=== PATIENT | male | born 1955 | race Caucasian/White ===

== ENCOUNTER 2020-05-31 14:53 | Emergency (ER) | payer OTHER, SELFPAY ==
[2020-05-31] VITALS (7 sets, daily range): BP systolic 140–168; BP diastolic 84–95; PULSE 72–91; RESP 15–25; TEMP 36.8; O2SAT 95–99; BMI 29.7
--- NOTE | 2020-05-31 15:01 | DI.RAD.S_ITS ---
PROCEDURE: XR CHEST 2V INDICATIONS: shortness of breath TECHNIQUE: 2 views of the chest were acquired. COMPARISON: None. FINDINGS: Surgical changes and devices: None. Lungs and pleura: Lungs are clear. No pleural effusions or pneumothorax. Mediastinum: Mediastinal contours are normal. Heart size is normal. Bones and chest wall: No suspicious bony abnormalities. Soft tissues appear unremarkable. IMPRESSION: Normal for age, source of current shortness of breath symptoms is not seen. Dictated by: Nick Bobo M.D. on 05/31/2020 at 16:02 Approved by: Nick Bobo M.D. on 05/31/2020 at 16:03
[2020-05-31 15:40] LABS: Add Manual Diff / Slide Review NO; Basophils Absolute Auto 100 /uL (0-100); Basophils Percent Auto 0.9 % (0-2); Eosinophils Absolute Auto 100 /uL (0-450); Eosinophils Percent Auto 2.2 % (2-4); Hematocrit 47.3 % (41-53); Hemoglobin 16.6 g/dL (13.5-17.5); Lymphocytes Absolute Auto 1700 /uL (1100-4500); Lymphocytes Percent Auto 26.7 % (25-40); Mean Corpuscular Hemoglobin 31.7 PG (26-34); Mean Corpuscular Volume 90.6 fL (80-100); Monocytes Absolute Auto 700 /uL (0-900); Neutrophils Absolute Auto 3700 /uL (1500-7000); Neutrophils Percent Auto 59.2 % (50-75); Platelet Count 286 X10^3/uL (150-400); Red Blood Cell Count 5.22 X10^6/uL (4.5-5.9); Red Cell Distribution Width 12.9 % (11.6-14.8); White Blood Cell Count 6.2 X10^3/uL (4.5-11.0)
--- NOTE | 2020-05-31 15:43 | ED_ITS ---
HPI - SOB/Dyspnea General Chief Complaint: Shortness of Breath/Dyspnea Stated Complaint: Short of breath, chest pain Time Seen by Provider: 05/31/20 15:33 Source: patient Mode of arrival: Ambulatory Limitations: no limitations History of Present Illness HPI Narrative: This is a 64-year-old male who comes to the emergency department with complaint of shortness of breath. Patient states he history of pulmonary emboli several years ago. He states it was after he had a cast that was placed in appropriately on his leg. Patient was on warfarin for period of time. He no longer takes this medication. Patient states that he has noticed some mild discomfort in his right calf and into his thigh. He states he has been sitting a lot recently with the pandemic. He has also had some shortness of breath that was worse several nights ago particularly with lying flat. He has also developed a nagging cough. Patient states he had similar symptoms when he has pulmonary emboli. He has also had a mild headache he denies any fevers, chills. He states his cough has had some brownish productive sputum. He does not have any increased dyspnea with exertion. He denies any significant chest pain he states that he will sometimes have random spots that her. No nausea, denies vomiting, no issues with bowel movements. No urinary issues. No swelling in patient's lower extremities. He states he has chronic puffiness and color discoloration from his prior DVT in his right lower extremity. Patient denies any prior surgeries, no allergies to medications. No tobacco, no alcohol. Does use THC but denies other recreational drugs. Follows with Dr. De Guzman and lives on [facility]. Related Data Home Medications Medication Instructions Recorded Confirmed enoxaparin [Lovenox] 100 mg SQ Q12H #0 11/26/10 warfarin [Coumadin] 5 mg PO QDAY #0 11/26/10 Allergies Allergy/AdvReac Type Severity Reaction Status Date / Time No Known Drug Allergies Allergy Verified 05/31/20 15:03 Review of Systems Review of Systems ROS Unobtainable: All systems reviewed & are unremarkable except as noted in HPI and below Patient History Medical History (Updated 05/31/20 @ 17:18 by Roxanne Maza DO) Pulmonary embolism Social History Smoking Status: Unknown if ever smoked Smoking Status: Unknown if ever smoked alcohol intake frequency: holidays/special occasions only Substance Use Type: marijuana Exam Narrative Exam Narrative: GENERAL: Alert and oriented x three, obese male in mild distress. HEENT: Head normocephalic, atraumatic, EOMI, pupils reactive, face symmetric, moist mucous membranes NECK: Supple, full range of motion CARDIOVASCULAR: Regular rate and rhythm without murmurs, rubs or gallops. No JVD. RESPIRATORY: Breath sounds equal bilaterally, no wheezes rales or rhonchi. No tachypnea. Speaks in full sentences. ABDOMEN: Soft, nontender. Normoactive bowel sounds all 4 quadrants. No guarding or rebound, rigidity, no mass : No CVA tenderness EXTREMITIES: Normal range of motion, no clubbing. No significant swelling left versus right lower extremity. Neurovascularly intact NEUROLOGICAL: Cranial nerves II through XII grossly intact. Moving all extremities SKIN: Warm, dry, no petechiae, no rashes or lesions. Initial Vital Signs Initial Vital Signs: Vital Signs Temperature 98.2 F 05/31/20 15:00 Pulse Rate 91 H 05/31/20 15:00 Respiratory Rate 15 05/31/20 15:00 Blood Pressure 168/95 H 05/31/20 15:00 Pulse Oximetry 97 05/31/20 15:00 Scores HEART Score Heart Score history: Slightly Suspicious Heart Score EKG: Non-Specific repolarization disturbance Heart Score Age: 45-64 years old Heart Score risk factors: No known risk factors PERC Score Age greater than or equal to 50 years: Yes Heart rate greater than or equal to 100 bpm: No Room Air O2 Sat less than 95%: No Unilateral leg swelling: No Recent trauma or surgery: No Hemoptysis: No Prior PE or DVT: Yes Hormone Use: No Total PERC Score: 2 Course Orders Ordered: ED Orders 05/31/20 15:00 Complete Blood Count AUTO DIFF Stat Comprehensive Metabolic Panel Stat D Dimer Stat Lactate (Lactic Acid) Stat NT-proBNP (BNP-Adult 18+) Stat Troponin & CK Cardiac Panel Stat 05/31/20 15:01 XR chest 2V Stat EKG-12 Lead Stat Measure peak expiratory flow ONCE RT Consult Eval and Treat Now 05/31/20 15:30 COVID19 Stat 05/31/20 15:41 US periph venous low extrem rt Stat Vital Signs Vital signs: Vital Signs - 8 hr 05/31/20 15:00 05/31/20 15:01 05/31/20 15:26 Temperature 98.2 F Pulse Rate 91 H 84 81 Respiratory Rate 15 20 Blood Pressure 168/95 H 166/86 H Pulse Oximetry 97 99 96 05/31/20 15:30 05/31/20 16:00 05/31/20 16:30 Temperature Pulse Rate 82 78 79 Respiratory Rate 25 H 21 18 Blood Pressure 157/84 H 154/92 H 149/85 H Pulse Oximetry 95 97 95 05/31/20 17:00 Temperature Pulse Rate 72 Respiratory Rate 19 Blood Pressure 140/87 Pulse Oximetry 95 MDM - SOB/Dyspnea Lab Data Attestation: I reviewed the patient's lab results. Result diagrams: 05/31/20 15:00 05/31/20 15:00 Labs: Lab Results 05/31/20 05/31/20 05/31/20 Range/Units 15:00 15:00 15:00 WBC 6.2 (4.5-11.0) X10^3/uL RBC 5.22 (4.5-5.9) X10^6/uL Hgb 16.6 (13.5-17.5) g/dL Hct 47.3 (41-53) % MCV 90.6 (80-100) fL MCH 31.7 (26-34) PG MCHC 35.0 (30-36) % RDW 12.9 (11.6-14.8) % Plt Count 286 (150-400) X10^3/uL Neut % (Auto) 59.2 (50-75) % Lymph % (Auto) 26.7 (25-40) % [place] % (Auto) 11.0 (3-14) % Eos % (Auto) 2.2 (2-4) % Baso % (Auto) 0.9 (0-2) % Neut # (Auto) 3700 (6538-7036) /uL Lymph # (Auto) 1700 (7536-1088) /uL [place] # (Auto) 700 (0-900) /uL Eos # (Auto) 100 (0-450) /uL Baso # (Auto) 100 (0-100) /uL D-Dimer (<230) ng/mL Sodium 139 (137-145) mmol/L Potassium 3.8 (3.4-5.1) mmol/L Chloride 103 (98-107) mmol/L Carbon Dioxide 29 (22-32) mmol/L BUN 14 (9-20) mg/dL Creatinine 0.68 (0.66-1.25) mg/dL Estimated GFR > 60.0 (>60) mL/min BUN/Creatinine Ratio 20.6 (6-22) Glucose 122 H (80-110) mg/dL Lactate 1.6 (0.7-2.1) mmol/L Calcium 9.2 (8.4-10.2) mg/dL Total Bilirubin 0.7 (0.2-1.3) mg/dL AST 36 (17-59) IU/L ALT 35 (<50) IU/L Alkaline Phosphatase 119 (38-126) U/L Total Creatine Kinase (55-170) U/L CK-MB (CK-2) CK-MB (CK-2) Rel Index Troponin I (0.01-0.034) ng/mL NT-Pro-B Natriuret Pep (<125) pg/mL Total Protein 8.0 (6.3-8.2) g/dL Albumin 4.7 (3.5-5.0) g/dL Globulin 3.3 (1.7-4.1) g/dL Albumin/Globulin Ratio 1.4 (1.0-2.8) SARS-CoV-2 (PCR) (Negative) 05/31/20 05/31/20 05/31/20 Range/Units 15:00 15:00 15:30 WBC (4.5-11.0) X10^3/uL RBC (4.5-5.9) X10^6/uL Hgb (13.5-17.5) g/dL Hct (41-53) % MCV (80-100) fL MCH (26-34) PG MCHC (30-36) % RDW (11.6-14.8) % Plt Count (150-400) X10^3/uL Neut % (Auto) (50-75) % Lymph % (Auto) (25-40) % [place] % (Auto) (3-14) % Eos % (Auto) (2-4) % Baso % (Auto) (0-2) % Neut # (Auto) (9647-6508) /uL Lymph # (Auto) (4390-9023) /uL [place] # (Auto) (0-900) /uL Eos # (Auto) (0-450) /uL Baso # (Auto) (0-100) /uL D-Dimer < 200 (<230) ng/mL Sodium (137-145) mmol/L Potassium (3.4-5.1) mmol/L Chloride (98-107) mmol/L Carbon Dioxide (22-32) mmol/L BUN (9-20) mg/dL Creatinine (0.66-1.25) mg/dL Estimated GFR (>60) mL/min BUN/Creatinine Ratio (6-22) Glucose (80-110) mg/dL Lactate (0.7-2.1) mmol/L Calcium (8.4-10.2) mg/dL Total Bilirubin (0.2-1.3) mg/dL AST (17-59) IU/L ALT (<50) IU/L Alkaline Phosphatase (38-126) U/L Total Creatine Kinase 63 (55-170) U/L CK-MB (CK-2) TNP CK-MB (CK-2) Rel Index TNP Troponin I < 0.012 (0.01-0.034) ng/mL NT-Pro-B Natriuret Pep 54 (<125) pg/mL Total Protein (6.3-8.2) g/dL Albumin (3.5-5.0) g/dL Globulin (1.7-4.1) g/dL Albumin/Globulin Ratio (1.0-2.8) SARS-CoV-2 (PCR) Negative (Negative) Imaging Data Chest x-ray: Radiologist's Impression: [address] [id number] ReportSigned Patient: Jerry Rodríguez#: [id number]: 7Acct:[id number]/Sex: 64 / MDate of Service: 05/31/20Loc: EDAccession Number: [id number] Procedure: XR chest 2V Ordering Provider: Roxanne Maza D.O. PROCEDURE: XR CHEST 2V INDICATIONS: shortness of breath TECHNIQUE: 2 views of the chest were acquired. COMPARISON: None. FINDINGS: Surgical changes and devices: None. Lungs and pleura: Lungs are clear. No pleural effusions or pneumothorax. Mediastinum: Mediastinal contours are normal. Heart size is normal. Bones and chest wall: No suspicious bony abnormalities. Soft tissues appear unremarkable. IMPRESSION: Normal for age, source of current shortness of breath symptoms is not seen. Dictated by: Nick Bobo M.D. on 05/31/2020 at 16:02 Approved by: Nick Bobo M.D. on 05/31/2020 at 16:03 US - DVT: Radiologist's Impression: [address] [id number] ReportSigned Patient: Serjio RodríguezMR#: [id number]: 7Acct:[id number]/Sex: 64 / MDate of Service: 05/31/20Loc: EDAccession Number: [id number] Procedure: US periph venous low extrem rt Ordering Provider: Roxanne Maza D.O. PROCEDURE: US PERIPH VENOUS LOW EXTREM RT INDICATIONS: CALF/THIGH PAIN. HISTORY OF DEEP VEIN THROMBOSIS. TECHNIQUE: Real-time imaging, as well as color and pulse Doppler interrogation, were performed of the lower extremity deep veins from the inguinal ligament to the popliteal fossa. COMPARISON: None. FINDINGS: The common femoral, femoral and popliteal veins are normally compressible, and free of intraluminal thrombus. Color and pulse Doppler demonstrate normal phasic intraluminal flow. There is normal augmentation response to distal compression maneuver. IMPRESSION: No right lower extremity DVT. Dictated by: Se Graves M.D. on 05/31/2020 at 16:34 Approved by: Se Graves M.D. on 05/31/2020 at 16:36 ECG Data Attestation: I personally reviewed and interpreted this ECG as follows: Prior ECG tracings: available for review Interpretation: Sinus rhythm rate of 78, [place] 183, QRS of 105 and QTC 394. Left anterior fascicular block. No ST elevation depression appreciated. Patient has prior from 11/26/2010 appears similar to prior that EKG did have left axis deviation. MDM Narrative Medical decision making narrative: This is a 64-year-old male who comes to the emergency department with concern for pulmonary emboli. Patient states he has had some mild shortness of breath, a knocking cough that is similar to when he had his prior pulmonary emboli. He has not had fevers. He has had some nasal congestion. He also states he has had a little bit of discomfort in his right lower extremity patient's prior pulmonary emboli was after he had a splint on his right ankle for ankle fracture the splint was placed in correctly causing extreme pressure on a portion the lower extremity and they felt that this likely caused his blood clot. Patient states he has been a little bit more sedentary than normal secondary to the pandemic but has no other new risk factors. He was on anticoagulation but is no longer. Patient immediate ultrasound of lower extremity is negative D-dimer is negative, negative troponin, BNP with no other acute changes patient has had some upper respiratory symptoms. Not get a COVID. We did discuss my suspicion for PE at this time is, was offered CTA more for patient reassurance which he defers. Discharge Plan Departure Patient Disposition: Home Clinical Impression: Cough Activity Restrictions/Additional Instructions: Follow-up with your physician this week for recheck. Your labs and imaging today do not suggest that you have a pulmonary emboli but we did not do a CT of your chest. If you have worsening symptoms or more concerns please return. Return for fevers, chest pain, new shortness of breath or worsening shortness of breath, lightheadedness or passing out, diaphoresis or sweatiness, persistent vomiting, new swelling of extremities, increasing or new pain in her extremities or other new or concerning symptoms. Prescriptions: No Action warfarin [Coumadin] 5 MG tablet 5 mg PO QDAY Qty: 0 RF: 0 enoxaparin [Lovenox] 100 MG/1 ML syringe 100 mg SQ Q12H Qty: 0 RF: 0 Referrals: Blake Johnson MD [Primary Care Provider] -
[2020-05-31 15:53] LABS: COVID19 -Nasal RAPID Negative (Negative)
[2020-05-31 15:55] LABS: Alanine Aminotransferase 35 IU/L (<50); Albumin 4.7 g/dL (3.5-5.0); Albumin Globulin Ratio 1.4 (1.0-2.8); Alkaline Phosphatase 119 U/L (38-126); Aspartate Aminotransferase 36 IU/L (17-59); BUN Creatinine Ratio 20.6 (6-22); Bilirubin Total 0.7 mg/dL (0.2-1.3); Blood Urea Nitrogen 14 mg/dL (9-20); Calcium 9.2 mg/dL (8.4-10.2); Carbon Dioxide 29 mmol/L (22-32); Chloride 103 mmol/L (98-107); Estimated Glomerular Filt Rate > 60.0 mL/min (>60); Globulin 3.3 g/dL (1.7-4.1); Glucose 122 mg/dL (80-110); HEMOLYSIS 31 (0-50); Potassium 3.8 mmol/L (3.4-5.1); Sodium 139 mmol/L (137-145)
[2020-05-31 15:56] LABS: D Dimer < 200 ng/mL (<230); Lactate (Lactic Acid) 1.6 mmol/L (0.7-2.1)
[2020-05-31 16:13] LABS: Creatine Kinase 63 U/L (55-170)
[2020-05-31 16:26] LABS: NT-proBNP (BNP-Adult 18+) 54 pg/mL (<125); Troponin I < 0.012 ng/mL (0.01-0.034)
== END 2020-05-31 17:38 | disposition home or self-care (01) ==
PROVIDERS: Emergency Provider Emergency Medicine; Family Provider Family Medicine; PCP Family Medicine
DX: R05 Cough (principal); R06.02 Shortness of breath; Z86.711 Personal history of pulmonary embolism; Z79.01 Long term (current) use of anticoagulants; M79.604 Pain in right leg; R51.9 Headache, unspecified; E66.9 Obesity, unspecified; Z68.29 Body mass index [BMI] 29.0-29.9, adult; Z20.822 Contact with and (suspected) exposure to COVID-19
CPT/HCPCS: 71046; 80053; 82550; 83605; 83880; 84484; 85025; 85379; 87635; 93005; 93010; 93971; 99281; 99284; C9803

== ENCOUNTER → 2021-08-17 08:19 | Outpatient (CLI) | payer OTHER, SELFPAY ==
[2021-08-17 19:06] LABS: Appearance Urine UA CLEAR; Bilirubin Urine UA NEGATIVE (NEGATIVE); Color Urine UA YELLOW; Glucose Urine UA NEGATIVE (Negative); Ketones Urine UA NEGATIVE (NEGATIVE); Leukocyte Esterase Urine UA TRACE (NEGATIVE); Nitrite Urine UA NEGATIVE (Negative); Occult Blood Urine UA TRACE-LYSED (Negative); Protein Urine UA NEGATIVE (Negative); Urobilinogen Urine UA 0.2 E.U./dL (0.2)
[2021-08-17 19:11] LABS: Add Manual Diff / Slide Review NO; Basophils Absolute Auto 100 /uL (0-100); Basophils Percent Auto 0.9 % (0-2); Eosinophils Absolute Auto 100 /uL (0-450); Hemoglobin 16.5 g/dL (13.5-17.5); Lymphocytes Absolute Auto 1500 /uL (1100-4500); Lymphocytes Percent Auto 22.6 % (25-40); Mean Corpuscular HGB Conc 34.4 % (30-36); Mean Corpuscular Hemoglobin 31.4 PG (26-34); Mean Corpuscular Volume 91.4 fL (80-100); Monocytes Absolute Auto 600 /uL (0-900); Neutrophils Absolute Auto 4500 /uL (1500-7000); Neutrophils Percent Auto 65.5 % (50-75); Platelet Count 275 X10^3/uL (150-400); Red Blood Cell Count 5.26 X10^6/uL (4.5-5.9); White Blood Cell Count 6.8 X10^3/uL (4.5-11.0)
[2021-08-17 19:13] LABS: Alanine Aminotransferase 27 IU/L (<50); Albumin 4.6 g/dL (3.5-5.0); Albumin Globulin Ratio 1.6 (1.0-2.8); Alkaline Phosphatase 118 U/L (38-126); Aspartate Aminotransferase 29 IU/L (17-59); BUN Creatinine Ratio 16.5 (6-22); Bilirubin Total 0.7 mg/dL (0.2-1.3); Blood Urea Nitrogen 13 mg/dL (9-20); Calcium 9.2 mg/dL (8.4-10.2); Carbon Dioxide 28 mmol/L (22-32); Chloride 103 mmol/L (98-107); Cholesterol 242 mg/dL (140-199); Estimated Glomerular Filt Rate > 60.0 mL/min (>60); Globulin 2.9 g/dL (1.7-4.1); Glucose 105 mg/dL (80-110); HDL Cholesterol 45 mg/dL (40-60); HEMOLYSIS < 15 (0-50); LDL Cholesterol Calculated 141 mg/dL (<100); Potassium 4.3 mmol/L (3.4-5.1); Sodium 140 mmol/L (137-145); Total Protein 7.5 g/dL (6.3-8.2); Triglycerides 278 mg/dL (35-150)
[2021-08-17 19:41] LABS: Bacteria Urine Few (2-10); Culture Indicated Urine Specimen Cultured; RBC Urine 0-1/HPF (0-5/HPF); Squamous Epithelial Cell Urine 0-1 /HPF (0-5/HPF); WBC Urine 1-5/HPF (0-5/HPF)
[2021-08-17 19:43] LABS: Prostate Specific Antigen Scrn 2.88 ng/mL (0.1-4.0)
[2021-08-21 12:09] LABS: Fecal Immunochemical Test Negative (Negative)
== END ==
PROVIDERS: Family Provider Family Medicine; PCP Physician Assistant; Visit Provider Physician Assistant
DX: Z12.5 Encounter for screening for malignant neoplasm of prostate (principal); R19.7 Diarrhea, unspecified; R35.0 Frequency of micturition; R10.9 Unspecified abdominal pain; E78.00 Pure hypercholesterolemia, unspecified
CPT/HCPCS: 80053; 80061; 81003; 81015; 82274; 85025; 87045; 87086; 87177; 87899; G0103

== ENCOUNTER 2023-07-01 18:44 | Emergency (ER) | payer MEDICARE, SELFPAY ==
[2023-07-01] VITALS (7 sets, daily range): BP systolic 138–168; BP diastolic 79–97; PULSE 81–93; RESP 17–22; TEMP 37; O2SAT 95–98; BMI 31.3
--- NOTE | 2023-07-01 18:53 | DI.RAD.S_ITS ---
PROCEDURE: XR CHEST 1V INDICATIONS: Shortness of breath TECHNIQUE: One view of the chest was acquired. COMPARISON: [facility], CR, XR CHEST 2V, 05/31/2020, 15:14. FINDINGS: Surgical changes and devices: None. Lungs and pleura: Lungs are clear. No pleural effusions or pneumothorax. Mediastinum: Mediastinal contours appear normal. Heart size is normal. Bones and chest wall: No suspicious bony lesions. Overlying soft tissues appear unremarkable. IMPRESSION: No acute cardiopulmonary abnormality is seen. Dictated by: Med Lundy M.D. on 07/01/2023 at 19:55 Approved by: Med Lundy M.D. on 07/01/2023 at 19:55
--- NOTE | 2023-07-01 18:58 | DI.CT.S_ITS ---
PROCEDURE: CT ANGIO CHEST PE PROTOCOL INDICATIONS: h/o PE/DVT, not on thinners, SOB TECHNIQUE: After the administration of intravenous contrast, 2 mm thick sections acquired from the pulmonary apices to the posterior costophrenic angles. 3-dimensional maximum intensity projection (MIP) coronal and sagittal reformats were then acquired through the thorax. For radiation dose reduction, the following was used: automated exposure control, adjustment of mA and/or kV according to patient size. COMPARISON: [facility], CT, PE STUDY (CTA CHEST), 12/26/2011, 12:07. FINDINGS: Image quality: Diagnostic. Pulmonary arteries: Pulmonary arteries are normal in size, and demonstrate no intraluminal filling defects to suggest central pulmonary embolism. Lower Neck: No enlarged lymph nodes. Thyroid: No thyroid nodules which require sonographic follow up, per consensus guidelines. Axillae: No enlarged lymph nodes. Chest Wall: Unremarkable. Bones: Mild degenerative changes of the spine.. Lungs and Pleura: No pneumothorax or pleural effusions. Left upper lobe masslike consolidation measuring approximately 4 x 3 cm in transverse dimension. The lesion extends from the apex to the superior hilum measuring approximately 6.8 cm in craniocaudal extent. Mild paraseptal emphysematous changes. Heart: Heart size is normal. No pericardial effusion. Thoracic Vessels: No aortic aneurysm. Mediastinum and Vivien: Multiple prominent lymph nodes including an enlarged 1.5 cm AP window lymph node (5/51). Esophagus: No wall thickening. No hiatal hernia. Upper Abdomen: Hepatic steatosis. Calcification in the left hepatic lobe. IMPRESSION: No pulmonary embolus. Left upper lobe masslike consolidation as described above. Findings are concerning for primary neoplasm. Recommend further evaluation with tissue sampling. Prominent and enlarged mediastinal lymph nodes are concerning for metastatic disease. Dictated by: Med Lundy M.D. on 07/01/2023 at 19:41 Approved by: Med Lundy M.D. on 07/01/2023 at 19:46
[2023-07-01 19:27] LABS: Add Manual Diff / Slide Review NO; Basophils Absolute Auto 100 /uL (0-100); Basophils Percent Auto 1.1 % (0-2); Eosinophils Absolute Auto 300 /uL (0-450); Hematocrit 45.8 % (41-53); Hemoglobin 15.9 g/dL (13.5-17.5); Lymphocytes Absolute Auto 1500 /uL (1100-4500); Lymphocytes Percent Auto 22.5 % (25-40); Mean Corpuscular HGB Conc 34.8 % (30-36); Mean Corpuscular Hemoglobin 31.3 PG (26-34); Mean Corpuscular Volume 89.9 fL (80-100); Monocytes Absolute Auto 900 /uL (0-900); Monocytes Percent Auto 12.7 % (3-14); Neutrophils Absolute Auto 4100 /uL (1500-7000); Neutrophils Percent Auto 59.7 % (50-75); Platelet Count 254 X10^3/uL (150-400); Red Cell Distribution Width 12.7 % (11.6-14.8); White Blood Cell Count 6.9 X10^3/uL (4.5-11.0)
[2023-07-01 19:37] LABS: INR 1.1 (0.9-1.3)
[2023-07-01 19:41] LABS: Lactate (Lactic Acid) 1.3 mmol/L (0.7-2.1)
[2023-07-01 19:42] LABS: Alanine Aminotransferase 21 IU/L (<50); Albumin 4.5 g/dL (3.5-5.0); Albumin Globulin Ratio 1.3 (1.0-2.8); Alkaline Phosphatase 113 U/L (38-126); Aspartate Aminotransferase 24 IU/L (17-59); Bilirubin Total 0.7 mg/dL (0.2-1.3); Blood Urea Nitrogen 13 mg/dL (9-20); Carbon Dioxide 26 mmol/L (22-32); Chloride 102 mmol/L (98-107); Estimated Glomerular Filt Rate > 60 mL/min (>60); Globulin 3.5 g/dL (1.7-4.1); Glucose 148 mg/dL (80-110); HEMOLYSIS < 15 (0-50); Potassium 3.9 mmol/L (3.4-5.1); Sodium 140 mmol/L (137-145)
[2023-07-01 19:53] LABS: NT-proBNP (BNP-Adult 18+) 76 pg/mL (<125); Troponin I < 0.012 ng/mL (0.01-0.034)
--- NOTE | 2023-07-01 20:25 | ED.SOB ---
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 He is here today now concerned about the possibility of recurrent DVT and pulmonary embolism. He has not anticoagulated. He did complete anticoagulation after his event but it was considered to be a provoked clot. For a week or more now he has been having bilateral lower extremity pain, upper back pain and some shortness of breath. He also intermittently has had some chest pain. The chest pain does not sound ischemic, it is not exertional. He has not had fevers or cough. The patient has smoked marijuana but not tobacco. He says he is otherwise healthy and on no regular medications. Related Data Previous Rx's Medication Instructions Recorded apixaban 5 mg tablet 5 mg PO BID #74 tabs 07/01/23 Allergies Allergy/AdvReac Type Severity Reaction Status Date / Time No Known Drug Allergies Allergy Verified 07/01/23 13:29 Patient History Medical History (Updated 07/01/23 @ 22:22 by Kin Basurto MD) Pulmonary embolism (~2014) Family History (Updated 10/30/21 @ 11:11 by Manjula Bonilla CMA) Mother Stroke Heart disease Sister Diabetes mellitus Brother Cancer Social History Smoking Status: Former smoker Smoking Status: Former smoker alcohol intake frequency: holidays/special occasions only Substance Use Type: marijuana Exam Narrative Exam Narrative: Alert, no acute distress HEENT: Normocephalic, atraumaitic moist mucus membranes Neck: Supple no midline tenderness Has bilateral axillary adenopathy, no cervical adenopathy Lungs: Clear to ascultaion, no respiratory distress Heart: Regular rhythm and rate no murmur Abdomen: Normal bowel sounds, soft and nontender Extremeties: Full range of motion no deformity. No lower extremity cords, he does have what appears to be some superficial varices in the lower extremities Neuro: Alert and oriented, normal speech moves x4 Initial Vital Signs Initial Vital Signs: Vital Signs Temperature 98.6 F 07/01/23 18:46 Pulse Rate 93 H 07/01/23 18:46 Respiratory Rate 18 07/01/23 18:46 Blood Pressure 168/96 H 07/01/23 18:46 Pulse Oximetry 98 07/01/23 18:46 Oxygen Delivery Method Room Air 07/01/23 18:46 Course Orders Ordered: ED Orders 07/01/23 18:53 XR chest 1V Stat EKG-12 Lead Stat Measure peak expiratory flow ONCE RT Consult Eval and Treat NOW 07/01/23 18:58 CT angio chest PE protocol Stat 07/01/23 19:18 Complete Blood Count AUTO DIFF Stat Comprehensive Metabolic Panel Stat Lactate (Lactic Acid) Stat NT-proBNP (BNP-Adult 18+) Stat Prothrombin Time INR Stat Troponin I Stat 07/01/23 19:29 EKG-12 Lead Stat 07/01/23 20:39 US periph venous low extrem bi Stat 07/01/23 22:22 Consult to Oncology Stat Discontinued Medications Apixaban (Apixaban 5 Mg Tablet) 10 mg PO NOW ONE Stop: 07/01/23 22:19 Last Admin: 07/01/23 22:34 Dose: 10 mg Documented By: AB Consultations Consultation #1: Discussed with Dr. Buckley, [facility] oncology, they will get the patient in [place] Vital Signs Vital signs: Vital Signs - 8 hr 07/01/23 18:46 07/01/23 19:37 07/01/23 20:00 Temperature 98.6 F Pulse Rate 93 H 85 Respiratory Rate 18 Blood Pressure 168/96 H 138/79 Pulse Oximetry 98 97 Oxygen Delivery Method Room Air Room Air 07/01/23 20:00 07/01/23 20:30 07/01/23 20:30 Temperature Pulse Rate 81 84 Respiratory Rate 17 22 Blood Pressure 141/94 H Pulse Oximetry 97 96 Oxygen Delivery Method Room Air Room Air 07/01/23 21:00 07/01/23 21:00 07/01/23 21:30 Temperature Pulse Rate 81 81 Respiratory Rate 20 19 Blood Pressure 145/90 H Pulse Oximetry 97 95 Oxygen Delivery Method Room Air 07/01/23 21:30 07/01/23 22:00 07/01/23 22:00 Temperature Pulse Rate 82 Respiratory Rate 17 Blood Pressure 147/97 H 145/93 H Pulse Oximetry 95 Oxygen Delivery Method MDM - SOB/Dyspnea Lab Data Lab results narrative: CBC with diff is unremarkable, CMP is unremarkable, INR is normal, troponin is normal 07/01/23 19:18 07/01/23 19:18 Labs: Lab Results 07/01/23 Range/Units 19:18 WBC 6.9 (4.5-11.0) X10^3/uL RBC 5.10 (4.5-5.9) X10^6/uL Hgb 15.9 (13.5-17.5) g/dL Hct 45.8 (41-53) % MCV 89.9 (80-100) fL MCH 31.3 (26-34) PG MCHC 34.8 (30-36) % RDW 12.7 (11.6-14.8) % Plt Count 254 (150-400) X10^3/uL Neut % (Auto) 59.7 (50-75) % Lymph % (Auto) 22.5 L (25-40) % Geary % (Auto) 12.7 (3-14) % Eos % (Auto) 4.0 (2-4) % Baso % (Auto) 1.1 (0-2) % Neut # (Auto) 4100 (2701-9771) /uL Lymph # (Auto) 1500 (0708-0612) /uL Geary # (Auto) 900 (0-900) /uL Eos # (Auto) 300 (0-450) /uL Baso # (Auto) 100 (0-100) /uL PT 13.0 H (9.4-12.5) SECONDS INR 1.1 (0.9-1.3) Sodium 140 (137-145) mmol/L Potassium 3.9 (3.4-5.1) mmol/L Chloride 102 (98-107) mmol/L Carbon Dioxide 26 (22-32) mmol/L BUN 13 (9-20) mg/dL Creatinine 0.81 (0.66-1.25) mg/dL Estimated GFR > 60 (>60) mL/min BUN/Creatinine Ratio 16.0 (6-22) Glucose 148 H (80-110) mg/dL Lactate 1.3 (0.7-2.1) mmol/L Calcium 9.0 (8.4-10.2) mg/dL Total Bilirubin 0.7 (0.2-1.3) mg/dL AST 24 (17-59) IU/L ALT 21 (<50) IU/L Alkaline Phosphatase 113 (38-126) U/L Troponin I < 0.012 (0.01-0.034) ng/mL NT-Pro-B Natriuret Pep 76 (<125) pg/mL Total Protein 8.0 (6.3-8.2) g/dL Albumin 4.5 (3.5-5.0) g/dL Globulin 3.5 (1.7-4.1) g/dL Albumin/Globulin Ratio 1.3 (1.0-2.8) ABG Data Interpretation: Independently reviewed, no pulmonary embolism, left upper lobe mass Imaging Data CT angiogram of chest: Radiologist's Impression: [address] [address] [address] Scan Report Signed Patient: Serjio Rodríguez MR#: [id number] : 1955 Acct:[id number] Age/Sex: 67 / M Date of Service: 07/01/23 Loc: ED Accession Number: [id number] Procedure: CT angio chest PE protocol Ordering Provider: Kin Basurto MD PROCEDURE: CT ANGIO CHEST PE PROTOCOL INDICATIONS: h/o PE/DVT, not on thinners, SOB TECHNIQUE: After the administration of intravenous contrast, 2 mm thick sections acquired from the pulmonary apices to the posterior costophrenic angles. 3-dimensional maximum intensity projection (MIP) coronal and sagittal reformats were then acquired through the thorax. For radiation dose reduction, the following was used: automated exposure control, adjustment of mA and/or kV according to patient size. COMPARISON: [facility], CT, PE STUDY (CTA CHEST), 12/26/2011, 12:07. FINDINGS: Image quality: Diagnostic. Pulmonary arteries: Pulmonary arteries are normal in size, and demonstrate no intraluminal filling defects to suggest central pulmonary embolism. Lower Neck: No enlarged lymph nodes. Thyroid: No thyroid nodules which require sonographic follow up, per consensus guidelines. Axillae: No enlarged lymph nodes. Chest Wall: Unremarkable. Bones: Mild degenerative changes of the spine.. Lungs and Pleura: No pneumothorax or pleural effusions. Left upper lobe masslike consolidation measuring approximately 4 x 3 cm in transverse dimension. The lesion extends from the apex to the superior hilum measuring approximately 6.8 cm in craniocaudal extent. Mild paraseptal emphysematous changes. Heart: Heart size is normal. No pericardial effusion. Thoracic Vessels: No aortic aneurysm. Mediastinum and Vivien: Multiple prominent lymph nodes including an enlarged 1.5 cm AP window lymph node (5/51). Esophagus: No wall thickening. No hiatal hernia. Upper Abdomen: Hepatic steatosis. Calcification in the left hepatic lobe. IMPRESSION: No pulmonary embolus. Left upper lobe masslike consolidation as described above. Findings are concerning for primary neoplasm. Recommend further evaluation with tissue sampling. Prominent and enlarged mediastinal lymph nodes are concerning for metastatic disease. Dictated by: Med Lundy M.D. on 07/01/2023 at 19:41 Approved by: Med Lundy M.D. on 07/01/2023 at 19:46 Chest x-ray: My Impression: Independent review, concern for left upper lobe mass no infiltrate no evidence of heart failure Lower extremity venous ultrasound: Radiologist's Impression: [address] [address] Ultrasound Report Signed Patient: Serjio Rodríguez MR#: [id number] : 1955 Acct:[id number] Age/Sex: 67 / M Date of Service: 07/01/23 Loc: ED Accession Number: [id number] Procedure: US periph venous low extrem bi Ordering Provider: Kin Basurto MD PROCEDURE: US PERIPH VENOUS LOW EXTREM BI INDICATIONS: dvt suspect TECHNIQUE: Real-time imaging, as well as color and pulse Doppler interrogation, were performed of the deep veins of both legs from the inguinal ligament to the popliteal fossa, with documentation of the visualized calf veins. COMPARISON: None. FINDINGS: Right: There is deep venous thrombosis involving the right superficial femoral vein extending distally to the right posterior tibial vein. Left: The common femoral, femoral, popliteal, and the visualized calf veins are normally compressible, and free of intraluminal thrombus. Color and pulse Doppler demonstrate normal phasic intravascular flow. There is normal augmentation response to distal compression maneuver. IMPRESSION: Deep venous thrombosis identified in the right mid superficial femoral vein extending distally to the right posterior tibial vein. No findings of deep venous thrombosis in the left lower extremity. Dictated by: Jude Simon M.D. on 07/01/2023 at 21:34 Approved by: Jude Simon M.D. on 07/01/2023 at 21:36 ECG Data Interpretation: ECG shows normal sinus rhythm at 91. No acute ST segment changes left anterior fascicular block MDM Narrative Medical decision making narrative: 67-year-old man who has not presently anticoagulated with a history of provoked DVT and pulmonary embolism. He presents with concern about a DVT. He has not hypoxic or tachycardic, did have some chest pain and dyspnea therefore CT angiogram was performed. CT is negative for pulmonary embolism unfortunately demonstrates a left lung mass which is likely malignant. He did also has some calf swelling and pain and ultrasound does show the presence of a DVT. Patient was referred to Oncology for further workup of his new finding of a lung mass. I started him on apixaban for his DVT. He was stable for discharge. Discharge Plan Departure Patient Disposition: Home Clinical Impression: Mass of left lung DVT (deep venous thrombosis) Qualifiers: DVT location: lower extremity Affected thrombotic vein of extremity: femoral Chronicity: acute Laterality: right Qualified Code(s): I82.411 - Acute embolism and thrombosis of right femoral vein Activity Restrictions/Additional Instructions: Today, we saw you for but unfortunately turned out to be a left lung mass as well as a DVT in your right leg. I have made a referral to Oncology, you should have contact information for oncology at [facility], call them to be seen as soon as possible. Additionally, I have provided a prescription for apixaban, take this as prescribed, 2 tablets twice daily for 1 week then 1 tablet twice daily. As we discussed if you have head injury or other uncontrolled bleeding recheck in the emergency department immediately. Likewise if you are having shortness of breath or chest pain recheck in the ED. Prescriptions: New apixaban 5 mg tablet 5 mg PO BID Qty: 74 0RF Rx Instructions: Take 2 tablets twice daily for 1 week and then take 1 tablet twice a day. Do not discontinue this medication without discussing with your doctor Referrals: Cate Ruiz PA-C [Primary Care Provider] - Lillian Buckley MD [Physician] - (for new DX of lung mass) Stand Alone Forms: Patient Portal/API
--- NOTE | 2023-07-01 20:39 | DI.US.S_ITS ---
PROCEDURE: US PERIPH VENOUS LOW EXTREM BI INDICATIONS: dvt suspect TECHNIQUE: Real-time imaging, as well as color and pulse Doppler interrogation, were performed of the deep veins of both legs from the inguinal ligament to the popliteal fossa, with documentation of the visualized calf veins. COMPARISON: None. FINDINGS: Right: There is deep venous thrombosis involving the right superficial femoral vein extending distally to the right posterior tibial vein. Left: The common femoral, femoral, popliteal, and the visualized calf veins are normally compressible, and free of intraluminal thrombus. Color and pulse Doppler demonstrate normal phasic intravascular flow. There is normal augmentation response to distal compression maneuver. IMPRESSION: Deep venous thrombosis identified in the right mid superficial femoral vein extending distally to the right posterior tibial vein. No findings of deep venous thrombosis in the left lower extremity. Dictated by: Jude Simon M.D. on 07/01/2023 at 21:34 Approved by: Jude Simon M.D. on 07/01/2023 at 21:36
[2023-07-01] MEDS: APIXABAN 5 MG TABLET 10 MG PO (22:34)
== END 2023-07-01 22:39 | disposition home or self-care (01) ==
PROVIDERS: Emergency Provider Emergency Medicine; Family Provider Family Medicine; PCP Physician Assistant
DX: I82.411 Acute embolism and thrombosis of right femoral vein (principal); R91.8 Other nonspecific abnormal finding of lung field; Z86.711 Personal history of pulmonary embolism
CPT/HCPCS: 36415; 71045; 71275; 80053; 83605; 83880; 84484; 85025; 85610; 93005; 93970; 99284; Q9967

== ENCOUNTER → 2023-11-04 10:01 | Outpatient (CLI) | payer MEDICARE, SELFPAY ==
[2023-11-04 20:02] LABS: BUN Creatinine Ratio 16.9 (6-22); Blood Urea Nitrogen 12 mg/dL (9-20); Calcium 9.5 mg/dL (8.4-10.2); Carbon Dioxide 31 mmol/L (22-32); Chloride 103 mmol/L (98-107); Cholesterol 180 mg/dL (140-199); Estimated Glomerular Filt Rate > 60 mL/min (>60); Glucose 136 mg/dL (80-110); HDL Cholesterol 44 mg/dL (40-60); HEMOLYSIS < 15 (0-50); LDL Cholesterol Calculated 98 mg/dL (<100); Potassium 4.3 mmol/L (3.4-5.1); Sodium 137 mmol/L (137-145); Triglycerides 188 mg/dL (35-150)
[2023-11-04 20:06] LABS: Hemoglobin A1C% w Est Avg Glu 7.4 % (4.0-6.0)
[2023-11-04 20:12] LABS: Add Manual Diff / Slide Review NO; Basophils Absolute Auto 100 /uL (0-100); Basophils Percent Auto 1.2 % (0-2); Eosinophils Absolute Auto 300 /uL (0-450); Eosinophils Percent Auto 6.5 % (2-4); Hematocrit 44.5 % (41-53); Hemoglobin 15.5 g/dL (13.5-17.5); Lymphocytes Absolute Auto 1300 /uL (1100-4500); Mean Corpuscular HGB Conc 34.8 % (30-36); Mean Corpuscular Hemoglobin 30.8 PG (26-34); Mean Corpuscular Volume 88.5 fL (80-100); Monocytes Absolute Auto 600 /uL (0-900); Monocytes Percent Auto 12.4 % (3-14); Neutrophils Absolute Auto 2600 /uL (1500-7000); Neutrophils Percent Auto 53.9 % (50-75); Platelet Count 254 X10^3/uL (150-400); Red Blood Cell Count 5.02 X10^6/uL (4.5-5.9); Red Cell Distribution Width 13.4 % (11.6-14.8); White Blood Cell Count 4.8 X10^3/uL (4.5-11.0)
== END ==
PROVIDERS: Family Provider Family Medicine; PCP Family Medicine; Visit Provider Family Medicine
DX: Z12.5 Encounter for screening for malignant neoplasm of prostate (principal); I10 Essential (primary) hypertension; R73.9 Hyperglycemia, unspecified; E78.5 Hyperlipidemia, unspecified; Z86.711 Personal history of pulmonary embolism; Z79.01 Long term (current) use of anticoagulants
CPT/HCPCS: 80048; 80061; 83036; 85025

== ENCOUNTER → 2024-02-17 14:24 | Outpatient (CLI) | payer OTHER, SELFPAY ==
[2024-02-17 20:06] LABS: INR 1.2 (0.9-1.3); Prothrombin Time 13.3 SECONDS (9.4-12.5)
[2024-02-17 21:07] LABS: Hemoglobin A1C% w Est Avg Glu 6.8 % (4.0-6.0)
== END ==
PROVIDERS: Family Provider Family Medicine; PCP Family Medicine; Visit Provider Family Medicine
DX: E11.9 Type 2 diabetes mellitus without complications (principal); Z86.718 Personal history of other venous thrombosis and embolism; Z79.01 Long term (current) use of anticoagulants
CPT/HCPCS: 83036; 85610

== ENCOUNTER → 2024-02-27 08:59 | Outpatient (CLI) | payer OTHER, SELFPAY ==
[2024-02-27 20:38] LABS: Add Manual Diff / Slide Review NO; Basophils Absolute Auto 0 /uL (0-100); Basophils Percent Auto 0.9 % (0-2); Eosinophils Absolute Auto 300 /uL (0-450); Eosinophils Percent Auto 8.3 % (2-4); Hematocrit 45.7 % (41-53); Hemoglobin 15.9 g/dL (13.5-17.5); Lymphocytes Absolute Auto 1100 /uL (1100-4500); Lymphocytes Percent Auto 27.8 % (25-40); Mean Corpuscular HGB Conc 34.7 % (30-36); Mean Corpuscular Hemoglobin 30.9 PG (26-34); Monocytes Absolute Auto 500 /uL (0-900); Neutrophils Absolute Auto 2000 /uL (1500-7000); Platelet Count 264 X10^3/uL (150-400); Red Blood Cell Count 5.14 X10^6/uL (4.5-5.9); Red Cell Distribution Width 13.2 % (11.6-14.8)
[2024-02-27 20:43] LABS: BUN Creatinine Ratio 11.8 (6-22); Blood Urea Nitrogen 10 mg/dL (9-20); Calcium 9.5 mg/dL (8.4-10.2); Carbon Dioxide 29 mmol/L (22-32); Chloride 102 mmol/L (98-107); Cholesterol 162 mg/dL (140-199); Estimated Glomerular Filt Rate > 60 mL/min (>60); Glucose 127 mg/dL (80-110); HDL Cholesterol 40 mg/dL (40-60); HEMOLYSIS < 15 (0-50); LDL Cholesterol Calculated 81 mg/dL (<100); Potassium 4.6 mmol/L (3.4-5.1); Sodium 139 mmol/L (137-145); Triglycerides 203 mg/dL (35-150)
[2024-02-27 20:46] LABS: Hemoglobin A1C% w Est Avg Glu 7.1 % (4.0-6.0)
[2024-02-27 20:57] LABS: INR 1.9 (0.9-1.3); Prothrombin Time 22.1 SECONDS (9.4-12.5)
[2024-02-27 21:30] LABS: Creatinine Urine Random 82.16 mg/dL
[2024-02-27 21:38] LABS: Microalbumin Urine Random < 0.6 mg/dL (0-1.6)
== END ==
PROVIDERS: Family Provider Family Medicine; PCP Family Medicine; Visit Provider Family Medicine
DX: I82.409 Acute embolism and thrombosis of unspecified deep veins of unspecified lower extremity (principal); E11.9 Type 2 diabetes mellitus without complications; Z12.5 Encounter for screening for malignant neoplasm of prostate; Z79.01 Long term (current) use of anticoagulants; I10 Essential (primary) hypertension; E78.5 Hyperlipidemia, unspecified; Z86.711 Personal history of pulmonary embolism; Z86.718 Personal history of other venous thrombosis and embolism; I26.99 Other pulmonary embolism without acute cor pulmonale
CPT/HCPCS: 80048; 80061; 82043; 82570; 83036; 85025; 85610; G0103

== ENCOUNTER → 2024-03-04 10:40 | Outpatient (CLI) | payer OTHER, SELFPAY ==
[2024-03-04 19:05] LABS: Prothrombin Time 23.6 SECONDS (9.4-12.5)
== END ==
PROVIDERS: Family Provider Family Medicine; PCP Family Medicine; Visit Provider Family Medicine
DX: I26.99 Other pulmonary embolism without acute cor pulmonale (principal); Z86.718 Personal history of other venous thrombosis and embolism; Z79.01 Long term (current) use of anticoagulants
CPT/HCPCS: 85610

== ENCOUNTER → 2024-03-11 14:26 | Outpatient (CLI) | payer MEDICARE, SELFPAY ==
[2024-03-11 18:52] LABS: INR 2.6 (0.9-1.3); Prothrombin Time 28.7 SECONDS (9.4-12.5)
== END ==
PROVIDERS: Family Provider Family Medicine; PCP Family Medicine
DX: Z86.711 Personal history of pulmonary embolism (principal); Z79.01 Long term (current) use of anticoagulants; I26.99 Other pulmonary embolism without acute cor pulmonale; Z86.718 Personal history of other venous thrombosis and embolism
CPT/HCPCS: 85610

== ENCOUNTER → 2024-03-18 14:04 | Outpatient (CLI) | payer OTHER, SELFPAY ==
[2024-03-18 20:18] LABS: Prothrombin Time 22.2 SECONDS (9.4-12.5)
== END ==
PROVIDERS: Family Provider Family Medicine; PCP Family Medicine; Visit Provider Family Medicine
DX: I26.99 Other pulmonary embolism without acute cor pulmonale (principal); Z86.718 Personal history of other venous thrombosis and embolism; Z79.01 Long term (current) use of anticoagulants
CPT/HCPCS: 85610

== ENCOUNTER → 2024-03-25 11:52 | Outpatient (CLI) | payer OTHER, SELFPAY ==
[2024-03-25 19:29] LABS: Prothrombin Time 21.9 SECONDS (9.4-12.5)
== END ==
PROVIDERS: Family Provider Family Medicine; PCP Family Medicine; Visit Provider Family Medicine
DX: I26.99 Other pulmonary embolism without acute cor pulmonale (principal); Z86.718 Personal history of other venous thrombosis and embolism; Z79.01 Long term (current) use of anticoagulants
CPT/HCPCS: 85610

== ENCOUNTER → 2024-04-08 14:22 | Outpatient (CLI) | payer OTHER, SELFPAY ==
[2024-04-08 19:44] LABS: INR 3.3 (0.9-1.3); Prothrombin Time 36.7 SECONDS (9.4-12.5)
== END ==
PROVIDERS: Family Provider Family Medicine; PCP Family Medicine
DX: I26.99 Other pulmonary embolism without acute cor pulmonale (principal); Z86.718 Personal history of other venous thrombosis and embolism; Z79.01 Long term (current) use of anticoagulants
CPT/HCPCS: 85610

== ENCOUNTER → 2024-04-14 14:38 | Outpatient (CLI) | payer OTHER, SELFPAY ==
[2024-04-14 18:56] LABS: Add Manual Diff / Slide Review NO; Basophils Absolute Auto 0 /uL (0-100); Basophils Percent Auto 0.2 % (0-2); Eosinophils Absolute Auto 400 /uL (0-450); Eosinophils Percent Auto 4.3 % (2-4); Hematocrit 43.5 % (41-53); Hemoglobin 15.1 g/dL (13.5-17.5); Lymphocytes Absolute Auto 900 /uL (1100-4500); Lymphocytes Percent Auto 8.6 % (25-40); Mean Corpuscular HGB Conc 34.7 % (30-36); Mean Corpuscular Hemoglobin 30.9 PG (26-34); Mean Corpuscular Volume 88.9 fL (80-100); Monocytes Absolute Auto 200 /uL (0-900); Monocytes Percent Auto 1.7 % (3-14); Neutrophils Absolute Auto 8700 /uL (1500-7000); Neutrophils Percent Auto 85.2 % (50-75); Platelet Count 244 X10^3/uL (150-400); Red Cell Distribution Width 13.2 % (11.6-14.8); White Blood Cell Count 10.2 X10^3/uL (4.5-11.0)
[2024-04-14 19:00] LABS: Prothrombin Time 58.3 SECONDS (9.4-12.5)
[2024-04-14 19:06] LABS: Alanine Aminotransferase 30 IU/L (<50); Albumin 3.9 g/dL (3.5-5.0); Albumin Globulin Ratio 1.4 (1.0-2.8); Alkaline Phosphatase 102 U/L (38-126); Aspartate Aminotransferase 61 IU/L (17-59); BUN Creatinine Ratio 32.6 (6-22); Bilirubin Total 1.1 mg/dL (0.2-1.3); Blood Urea Nitrogen 30 mg/dL (9-20); Calcium 8.5 mg/dL (8.4-10.2); Carbon Dioxide 29 mmol/L (22-32); Chloride 99 mmol/L (98-107); Estimated Glomerular Filt Rate > 60 mL/min (>60); Globulin 2.8 g/dL (1.7-4.1); Glucose 280 mg/dL (80-110); HEMOLYSIS 33 (0-50); Potassium 4.2 mmol/L (3.4-5.1); Sodium 133 mmol/L (137-145); Total Protein 6.7 g/dL (6.3-8.2)
[2024-04-14 19:46] LABS: INR 5.4 (0.9-1.3)
== END ==
PROVIDERS: Nurse Practitioner; Family Provider Family Medicine; PCP Family Medicine; Visit Provider Family Medicine
DX: I26.99 Other pulmonary embolism without acute cor pulmonale (principal); C34.92 Malignant neoplasm of unspecified part of left bronchus or lung; Z79.899 Other long term (current) drug therapy; Z79.01 Long term (current) use of anticoagulants; Z86.718 Personal history of other venous thrombosis and embolism
CPT/HCPCS: 36415; 80053; 85025; 85610

== ENCOUNTER → 2024-04-21 14:27 | Outpatient (CLI) | payer OTHER, SELFPAY ==
[2024-04-21 20:35] LABS: INR 2.3 (0.9-1.3)
== END ==
PROVIDERS: Family Provider Family Medicine; PCP Family Medicine
DX: I26.99 Other pulmonary embolism without acute cor pulmonale (principal); Z86.718 Personal history of other venous thrombosis and embolism; Z79.01 Long term (current) use of anticoagulants
CPT/HCPCS: 85610

== ENCOUNTER → 2024-04-29 14:33 | Outpatient (CLI) | payer OTHER, SELFPAY ==
[2024-04-29 19:49] LABS: Add Manual Diff / Slide Review NO; Basophils Absolute Auto 0 /uL (0-100); Basophils Percent Auto 0.7 % (0-2); Eosinophils Absolute Auto 0 /uL (0-450); Eosinophils Percent Auto 0.5 % (2-4); Hematocrit 46.3 % (41-53); Hemoglobin 15.8 g/dL (13.5-17.5); Lymphocytes Absolute Auto 600 /uL (1100-4500); Lymphocytes Percent Auto 16.4 % (25-40); Mean Corpuscular HGB Conc 34.2 % (30-36); Mean Corpuscular Hemoglobin 30.6 PG (26-34); Mean Corpuscular Volume 89.6 fL (80-100); Monocytes Absolute Auto 100 /uL (0-900); Monocytes Percent Auto 2.2 % (3-14); Neutrophils Absolute Auto 2900 /uL (1500-7000); Neutrophils Percent Auto 80.2 % (50-75); Platelet Count 273 X10^3/uL (150-400); Red Blood Cell Count 5.17 X10^6/uL (4.5-5.9); Red Cell Distribution Width 13.2 % (11.6-14.8); White Blood Cell Count 3.6 X10^3/uL (4.5-11.0)
[2024-04-29 20:20] LABS: Alanine Aminotransferase 49 IU/L (<50); Albumin 4.3 g/dL (3.5-5.0); Albumin Globulin Ratio 1.5 (1.0-2.8); Alkaline Phosphatase 212 U/L (38-126); Aspartate Aminotransferase 38 IU/L (17-59); BUN Creatinine Ratio 21.5 (6-22); Bilirubin Total 0.6 mg/dL (0.2-1.3); Blood Urea Nitrogen 17 mg/dL (9-20); Calcium 10.1 mg/dL (8.4-10.2); Carbon Dioxide 33 mmol/L (22-32); Chloride 99 mmol/L (98-107); Estimated Glomerular Filt Rate > 60 mL/min (>60); Globulin 2.9 g/dL (1.7-4.1); Glucose 272 mg/dL (80-110); HEMOLYSIS < 15 (0-50); Potassium 5.2 mmol/L (3.4-5.1); Sodium 136 mmol/L (137-145); Total Protein 7.2 g/dL (6.3-8.2)
[2024-04-29 20:21] LABS: INR 3.5 (0.9-1.3); Prothrombin Time 38.3 SECONDS (9.4-12.5)
[2024-04-29 20:54] LABS: TSH w/ Reflex to FT4 0.82 uIU/mL (0.47-4.68)
== END ==
PROVIDERS: Family Provider Family Medicine; PCP Family Medicine; Visit Provider Internal Medicine Hematology & Oncology
DX: C34.92 Malignant neoplasm of unspecified part of left bronchus or lung (principal); I26.99 Other pulmonary embolism without acute cor pulmonale; Z79.899 Other long term (current) drug therapy; Z86.718 Personal history of other venous thrombosis and embolism; Z79.01 Long term (current) use of anticoagulants
CPT/HCPCS: 80053; 84443; 85025; 85610

== ENCOUNTER → 2024-05-20 14:38 | Outpatient (CLI) | payer OTHER, SELFPAY ==
[2024-05-20 19:45] LABS: INR 3.4 (0.9-1.3); Prothrombin Time 37.7 SECONDS (9.4-12.5)
[2024-05-20 19:46] LABS: Add Manual Diff / Slide Review NO; Basophils Absolute Auto 0 /uL (0-100); Eosinophils Absolute Auto 0 /uL (0-450); Eosinophils Percent Auto 0.9 % (2-4); Hematocrit 41.8 % (41-53); Hemoglobin 14.7 g/dL (13.5-17.5); Lymphocytes Absolute Auto 600 /uL (1100-4500); Lymphocytes Percent Auto 15.4 % (25-40); Mean Corpuscular HGB Conc 35.1 % (30-36); Mean Corpuscular Hemoglobin 31.4 PG (26-34); Mean Corpuscular Volume 89.4 fL (80-100); Monocytes Absolute Auto 200 /uL (0-900); Monocytes Percent Auto 5.2 % (3-14); Neutrophils Absolute Auto 2900 /uL (1500-7000); Neutrophils Percent Auto 77.5 % (50-75); Platelet Count 202 X10^3/uL (150-400); Red Blood Cell Count 4.68 X10^6/uL (4.5-5.9); Red Cell Distribution Width 13.5 % (11.6-14.8); White Blood Cell Count 3.8 X10^3/uL (4.5-11.0)
[2024-05-20 19:58] LABS: Alanine Aminotransferase 38 IU/L (<50); Albumin 4.1 g/dL (3.5-5.0); Albumin Globulin Ratio 1.5 (1.0-2.8); Alkaline Phosphatase 182 U/L (38-126); Aspartate Aminotransferase 30 IU/L (17-59); BUN Creatinine Ratio 27.4 (6-22); Bilirubin Total 0.6 mg/dL (0.2-1.3); Blood Urea Nitrogen 17 mg/dL (9-20); Calcium 9.7 mg/dL (8.4-10.2); Carbon Dioxide 28 mmol/L (22-32); Chloride 104 mmol/L (98-107); Estimated Glomerular Filt Rate > 60 mL/min (>60); Globulin 2.7 g/dL (1.7-4.1); Glucose 176 mg/dL (80-110); HEMOLYSIS < 15 (0-50); Potassium 4.2 mmol/L (3.4-5.1); Sodium 136 mmol/L (137-145); Total Protein 6.8 g/dL (6.3-8.2)
[2024-05-20 20:04] LABS: Hemoglobin A1C% w Est Avg Glu 8.4 % (4.0-6.0)
[2024-05-20 20:31] LABS: TSH w/ Reflex to FT4 1.91 uIU/mL (0.47-4.68)
== END ==
PROVIDERS: Internal Medicine Hematology & Oncology; Family Provider Family Medicine; PCP Family Medicine; Visit Provider Nurse Practitioner
DX: R73.9 Hyperglycemia, unspecified (principal); Z79.899 Other long term (current) drug therapy; C34.92 Malignant neoplasm of unspecified part of left bronchus or lung; Z86.718 Personal history of other venous thrombosis and embolism; I26.99 Other pulmonary embolism without acute cor pulmonale; Z79.01 Long term (current) use of anticoagulants
CPT/HCPCS: 80053; 83036; 84443; 85025; 85610

== ENCOUNTER → 2024-06-09 13:57 | Outpatient (CLI) | payer OTHER, SELFPAY ==
[2024-06-09 19:13] LABS: INR 2.5 (0.9-1.3); Prothrombin Time 27.4 SECONDS (9.4-12.5)
[2024-06-09 19:30] LABS: Add Manual Diff / Slide Review NO; Basophils Absolute Auto 0 /uL (0-100); Basophils Percent Auto 1.1 % (0-2); Eosinophils Absolute Auto 100 /uL (0-450); Eosinophils Percent Auto 2.9 % (2-4); Hematocrit 39.9 % (41-53); Hemoglobin 13.7 g/dL (13.5-17.5); Lymphocytes Absolute Auto 800 /uL (1100-4500); Lymphocytes Percent Auto 26.8 % (25-40); Mean Corpuscular HGB Conc 34.5 % (30-36); Mean Corpuscular Hemoglobin 31.5 PG (26-34); Mean Corpuscular Volume 91.4 fL (80-100); Monocytes Absolute Auto 400 /uL (0-900); Monocytes Percent Auto 13.7 % (3-14); Neutrophils Absolute Auto 1700 /uL (1500-7000); Neutrophils Percent Auto 55.5 % (50-75); Platelet Count 184 X10^3/uL (150-400); Red Blood Cell Count 4.36 X10^6/uL (4.5-5.9); Red Cell Distribution Width 14.6 % (11.6-14.8)
[2024-06-09 19:35] LABS: Alanine Aminotransferase 34 IU/L (<50); Albumin 4.3 g/dL (3.5-5.0); Albumin Globulin Ratio 2.3 (1.0-2.8); Alkaline Phosphatase 144 U/L (38-126); Aspartate Aminotransferase 30 IU/L (17-59); BUN Creatinine Ratio 26.6 (6-22); Bilirubin Total 0.5 mg/dL (0.2-1.3); Blood Urea Nitrogen 17 mg/dL (9-20); Calcium 8.9 mg/dL (8.4-10.2); Carbon Dioxide 30 mmol/L (22-32); Chloride 102 mmol/L (98-107); Estimated Glomerular Filt Rate > 60 mL/min (>60); Globulin 1.9 g/dL (1.7-4.1); Glucose 264 mg/dL (80-110); HEMOLYSIS 18 (0-50); Potassium 4.6 mmol/L (3.4-5.1); Sodium 137 mmol/L (137-145); Total Protein 6.2 g/dL (6.3-8.2)
[2024-06-09 20:05] LABS: TSH w/ Reflex to FT4 2.67 uIU/mL (0.47-4.68)
== END ==
PROVIDERS: Family Provider Family Medicine; PCP Family Medicine; Visit Provider Internal Medicine Hematology & Oncology
DX: I26.99 Other pulmonary embolism without acute cor pulmonale (principal); Z86.711 Personal history of pulmonary embolism; Z79.01 Long term (current) use of anticoagulants; Z79.899 Other long term (current) drug therapy; C34.92 Malignant neoplasm of unspecified part of left bronchus or lung
CPT/HCPCS: 80053; 84443; 85025; 85610